=== PATIENT | male | born 1945 | race Caucasian/White ===

== ENCOUNTER 2019-04-30 08:41 | Emergency (ER) | payer MEDICARE, OTHER ==
[~2019-04-30] VITALS: Ht 175.3 cm; Wt 90.7 kg
[~2019-04-30 08:41] MED LIST: ADVIL LIQUI-GE200 MG PO; ALPRAZOLAM 0.50.5 M1 PO; ALPRAZOLAM ER1 MG PO; ALTACE10 M1 PO; ASPIRIN EC81 M1 PO; AZITHROMYCIN 2250 MG PO; BUDEPRION XL300 MG; GLUMETZA500; HUMALOG100 UNIT/1; HYDROCHLOROTHIA25 M1 PO; HYDROCODON-ACE1 EAC7 PO; LANTUS; PHENERGAN-CODE120 ML PO; SIMVASTATIN40 MG PO; TESTIM5 GM; TOPROL XL25 MG PO; VENTOLIN HFA 1818 GM INH
[2019-04-30 09:46] LABS: INFLUENZA A ANTIGEN Negative (Negative); INFLUENZA B ANTIGEN Negative (Negative)
[2019-04-30] MEDS ORDERED: TESSALON PERLE100 M1 PO (09:49)
[2019-04-30 10:05] VITALS: BP 129/77
== END 2019-04-30 10:07 | disposition home or self-care (01) ==
LOC: M.ERS 08:41
PROVIDERS: Emergency Medicine Emergency Medical Services
DX: J06.9 Acute upper respiratory infection, unspecified (principal); J34.89 Other specified disorders of nose and nasal sinuses; E11.9 Type 2 diabetes mellitus without complications; J44.9 Chronic obstructive pulmonary disease, unspecified; F32.9 Major depressive disorder, single episode, unspecified; Z87.442 Personal history of urinary calculi; Z79.4 Long term (current) use of insulin; Z79.899 Other long term (current) drug therapy; Z79.84 Long term (current) use of oral hypoglycemic drugs

== ENCOUNTER 2020-08-09 18:01 | Emergency (ER) | payer MEDICARE, OTHER ==
[~2020-08-09] VITALS: Ht 175.3 cm; Wt 90.7 kg
[~2020-08-09 18:01] MED LIST changes: +TESSALON PERLE100 M1 PO
[2020-08-09 18:36] LABS: ABSOLUTE BASOPHILS 0.2 thou/uL (0.0-0.2); ABSOLUTE LYMPHOCYTES 1.3 thou/uL (0.8-5.3); ABSOLUTE MONOCYTES 1.4 thou/uL (0.0-1.2); ABSOLUTE NEUTROPHILS 9.3 thou/uL (1.6-8.1); BASOPHILS 1.3 %; EOSINOPHILS 0.2 %; HEMATOCRIT 47.7 % (42.0-52.0); HEMOGLOBIN 16.3 gm/dL (14.0-18.0); LYMPHOCYTES 10.6 %; MCH 32.3 pg (26.0-34.0); MCHC 34.2 g/dL (28.0-37.0); MCV 94.4 fL (80.0-100.0); MONOCYTES 11.5 %; MPV 8.2 fl. (7.2-11.1); NUCLEATED RBCS 0 /100WBC; PLATELET COUNT* 311 thou/uL (150-400); POLYS 76.4 %; RBC 5.06 mil/uL (4.50-6.00); RDW-CV 14.1 % (10.5-14.5); WBC 12.2 thou/uL (4.0-11.0)
[2020-08-09 18:46] LABS: CALCIUM 9.3 mg/dL (8.5-10.1); CREATININE 1.2 mg/dL (0.6-1.3); POTASSIUM 4.2 mmol/L (3.5-5.1)
[2020-08-09 18:50] LABS: ALBUMIN 3.3 g/dL (3.4-5.0); TOTAL BILIRUBIN 0.2 mg/dL (<0.1-1.0); TOTAL PROTEIN 7.3 g/dL (6.4-8.2)
[2020-08-09 20:01] LABS: URINE BILIRUBIN NEGATIVE (Negative); URINE BLOOD TRACE (Negative); URINE CLARITY CLEAR; URINE COLOR YELLOW; URINE GLUCOSE-RANDOM 3+ (Negative); URINE KETONES 1+ (Negative); URINE LEUKOCYTES-REFLEX NEGATIVE (Negative); URINE NITRITE-REFLEX NEGATIVE (Negative); URINE PROTEIN NEGATIVE (Negative); URINE SPECIFIC GRAVITY <= 1.005 (1.005-1.030); URINE UROBILINOGEN 0.2 E.U./dl (0.2-1.0)
[2020-08-09] MEDS ORDERED: ZOFRAN ODT4 MG PO (20:36)
[2020-08-09] MEDS ORDERED: AMBIEN 5 MG TABL5 MG PO (20:36)
[2020-08-09 20:51] VITALS: BP 130/60
--- NOTE | 2020-08-11 11:45 | EKG ---
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1945 Requested By: Kuldeep Crawford Order Number: [id number] MD: Jered Khoury Measurements Intervals [place] Rate: 100 P: -54 MD: 213 QRS: -87 QRSD: 141 T: -16 QT: 381 QTc: 492 Interpretive Statements Multifocal atrial tachycardia Blocked PACs borderline prolonged MD interval RBBB and LAFB Compared to ECG 04/28/2012 05:33:19 Right bundle-branch block now present Sinus rhythm no longer present Left-axis deviation no longer present Electronically Signed On 08-11-2020 11:44:50 CDT by Jered Khoury [email or web address] <ELECTRONICALLY SIGNED> By: Jered Khoury MD, FACC 08/11/20 1144 1828 1828 Jered Khoury MD, FAC /EPI
== END 2020-08-09 20:51 | disposition home or self-care (01) ==
LOC: M.ERS 18:01
PROVIDERS: Emergency Medicine
DX: R10.9 Unspecified abdominal pain (principal); R11.2 Nausea with vomiting, unspecified; E66.9 Obesity, unspecified; F17.210 Nicotine dependence, cigarettes, uncomplicated; E11.9 Type 2 diabetes mellitus without complications; J44.9 Chronic obstructive pulmonary disease, unspecified; Z87.442 Personal history of urinary calculi

== ENCOUNTER 2020-11-20 13:26 | Inpatient (IN) | payer MEDICARE, OTHER ==
[~2020-11-20] VITALS: Ht 175.3 cm; Wt 96.2 kg
[2020-11-20] VITALS (8 sets, daily range): BP systolic 106–140; BP diastolic 59–72
[~2020-11-20 13:26] MED LIST changes: +AMBIEN 5 MG TABL5 MG PO; +ZOFRAN ODT4 MG PO
[2020-11-20 13:45] LABS: ABSOLUTE BASOPHILS 0.1 thou/uL (0.0-0.2); ABSOLUTE EOSINOPHILS 0.1 thou/uL (0.0-0.7); ABSOLUTE LYMPHOCYTES 1.3 thou/uL (0.8-5.3); ABSOLUTE MONOCYTES 0.9 thou/uL (0.0-1.2); ABSOLUTE NEUTROPHILS 7.2 thou/uL (1.6-8.1); BASOPHILS 0.8 %; EOSINOPHILS 1.3 %; HEMATOCRIT 43.6 % (42.0-52.0); HEMOGLOBIN 14.6 gm/dL (14.0-18.0); LYMPHOCYTES 13.8 %; MCH 31.5 pg (26.0-34.0); MCHC 33.6 g/dL (28.0-37.0); MCV 93.9 fL (80.0-100.0); MONOCYTES 9.7 %; MPV 7.4 fl. (7.2-11.1); NUCLEATED RBCS 0 /100WBC; PLATELET COUNT* 280 thou/uL (150-400); POLYS 74.4 %; RBC 4.64 mil/uL (4.50-6.00); RDW-CV 14.3 % (10.5-14.5); WBC 9.7 thou/uL (4.0-11.0)
[2020-11-20 13:53] LABS: CALCIUM 9.2 mg/dL (8.5-10.1); CREATININE 1.1 mg/dL (0.6-1.3); POTASSIUM 3.8 mmol/L (3.5-5.1)
[2020-11-20 14:03] LABS: ALBUMIN 3.5 g/dL (3.4-5.0); MAGNESIUM 1.8 mg/dL (1.8-2.4); TOTAL BILIRUBIN 0.2 mg/dL (<0.1-1.0); TOTAL PROTEIN 7.2 g/dL (6.4-8.2)
--- NOTE | 2020-11-20 15:10 | EKG ---
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1945 Requested By: Kuldeep Crawford Order Number: [id number] MD: Kirsten Knight Measurements Intervals [place] Rate: 74 P: 26 UT: 264 QRS: -71 QRSD: 148 T: -7 QT: 390 QTc: 433 Interpretive Statements Sinus rhythm Prolonged [place] interval RBBB and LAFB Compared to ECG 08/09/2020 18:28:25 Ectopic atrial tachycardia, multifocal no longer present Electronically Signed On 11-20-2020 15:10:11 CDT by Kirsten Knight [email or web address] <ELECTRONICALLY SIGNED> By: Kirsten Knight MD, [facility] 11/20/20 1510 1322 1322 Kirsten Knight MD, [facility] /EPI
[2020-11-20] MEDS ORDERED: PERCOCET 10-321 EACH PO (15:17)
[2020-11-20] MEDS ORDERED: METFORMIN HCL500 MG PO (15:17)
[2020-11-20] MEDS ORDERED: VASOTEC5 MG PO (15:17)
[2020-11-20] MEDS ORDERED: NOXIFOL-D32500 UNIT PO (15:18)
[2020-11-20] MEDS ORDERED: VITAMIN B-125000 MCG PO (15:18)
[2020-11-20] MEDS ORDERED: NOVOLIN N100 UNIT/1 SUBQ (15:20)
[2020-11-20] MEDS ORDERED: NOVOLIN R100 UNIT/1 SUBQ ×2 (15:21→15:25)
[2020-11-20] MEDS ORDERED: LUTEIN20 MG PO (15:32)
[2020-11-20] MEDS ORDERED: PRESERVISION A1 EAC2 PO (15:32)
[2020-11-20] MEDS ORDERED: WELLBUTRIN XL150 MG PO (15:33)
[2020-11-20] MEDS ORDERED: ALBUTEROL2.5 MG/31 INH (15:34)
[2020-11-20] MEDS ORDERED: NEURONTIN300 MG PO (15:35)
--- NOTE | 2020-11-20 16:11 | CARD ---
[address] [address] CARDIAC CATH REPORT Name: KIRSTEN BORDEN Room: [address] IN [facility]#: [id number] Admission: 11/20/20 Attend Phys: Suzie Hernandez Discharge: Date of : 45 Report #: [id number] THIS REPORT FOR: cc: Bethany Gruber Linda J. DO Blick, David R. 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 Procedure Narrative The patient was brought urgently to the Cardiac Catheterization Laboratory and was prepped and draped in a sterile manner. The right wrist was infiltrated with 1% Lidocaine subcutaneous anesthesia. IV conscious sedation was used throughout procedure with appropriate monitoring and was performed in the presence of a registered nurse who was an independent trained observer other than the physician performing the procedure. The right wrist accessed via ultrasound guidance. A 6 sheath was inserted into the right radial artery. Coronary angiography was performed using coronary diagnostic catheters. The right coronary system was accessed and visualized with a Diagnostic JR4 6Fr catheter. The left coronary [place] [address] CARDIAC CATH REPORT Name: KIRSTEN BORDEN Room: [address] IN [facility]#: [id number] Admission: 11/20/20 Attend Phys: Suzie Hernandez Discharge: Date of : 45 Report #: [id number] and visualized with a Diagnostic JL4 6Fr catheter. The left ventricle was accessed and visualized with a Diagnostic Pigtail 6Fr catheter. Left ventricular/Aortic Valve gradient assessed via catheter pullback. Left ventriculogram was performed in MENDEZ projection. Closure device was deployed with a 6 Fr vascband. The patient tolerated the procedure well and there were no complications associated with the procedure. There was no hematoma. Intraoperative Conscious Sedation Sedation start time: 1353 Case end Time: 1442 Fentanyl 25.0 mcg Versed 3.0 mg Fluoro Time: 10.7 minutes Dose: DAP 146737 cGycm2 1895.78 mGy Contrast Type and Amount: 140 [place] Coronary Angiography The patient's coronary anatomy is right dominant. Diagnostic Cath Left Main 60% distal stenosis LAD Apical LAD was a small artery with a very narrow lumen and had a 99% stenosis at the apex Circumflex 50% mid stenosis L HEMANTH medium sized vessel with a mid 80% stenosis Right Coronary 40% proximal stenosis. 99% stenosis was noted in the distal RCA after the acute margin. Filling defect consistent with a thrombus was noted. Ramus 0% stenosis Left Ventriculography The left ventricular ejection fraction is estimated to be 60-65%. Left ventricular wall motion abnormalities are present. There is no mitral insufficiency. Mild hypokinesis noted of the apex. Hemodynamics The aortic pressure is 117/55 mmHg with a mean of 87 mmHg. The left ventricular pressure is 121/7 mmHg with a mean of 13 mmHg. The left ventricular end diastolic pressure is 20 mmHg. There was no gradient across the aortic valve upon pullback. Pullback from the left ventricle to the aorta revealed no gradient across [place] [address] CARDIAC CATH REPORT Name: KIRSTEN BORDEN Room: [address] IN [facility]#: [id number] Admission: 11/20/20 Attend Phys: Suzie Hernandez Discharge: Date of : 45 Report #: [id number] PCI Technique Lesion Anticoagulation was achieved with Heparin. bolus of IV aggrastat given Percutaneous coronary intervention was performed on the distal right coronary artery. The lesion stenosis prior to intervention was 99% with PETERSON 3 flow. A JCR4 Guide Catheter was used to engage the RCA ostium. A bmw Interventional Guidewire was used to cross the lesion. BALLOON DILATION A Balloon catheter 2.5 x 12mm was inserted and inflated up to 18.00atm for 18seconds. Repeat angiography revealed the following post-dilatation results: 50% stenosis. STENT DEPLOYMENT A drug-eluting stent 3.5 x 15 mm was inserted and inflated up to 14.00atm for 20seconds. Repeat angiography revealed the following post-stent deployment results: 0% stenosis. Additional Inflation: 15.00atm for 19seconds. Additional Inflation: 17.00atm for 15seconds. Unable to advance a 3.5 x 38 mm drug eluting stent despite using a BMW guide wire advanced to the distal RCA to act as a Usman wire. Final angiography reveals 0 % stenosis with PETERSON 3 flow. Conclusion 1. 99% stenosis of the apical LAD which was a small vessel 2. 80% stenosis of the mid left posterolateral branch of the circumflex 3. 60% stenosis of the distal left main 4. 99% stenosis of the distal RCA with a thrombus 5. successful placement of a drug eluitng stent into the distal RCA 6. LVEF 60-65% Recommendations Smoking Cessation Medications Administered Clopidogrel <ELECTRONICALLY SIGNED> By: Kirsten Knight MD, [facility] 11/20/20 161 10 1611Davisuzie Knight MD, FACC /INF
[2020-11-21 00:51] VITALS: BP 120/64
[2020-11-21 04:32] LABS: HEMATOCRIT 38.8 % (42.0-52.0); HEMOGLOBIN 13.1 gm/dL (14.0-18.0); MCH 31.6 pg (26.0-34.0); MCHC 33.8 g/dL (28.0-37.0); MCV 93.6 fL (80.0-100.0); MPV 7.7 fl. (7.2-11.1); RBC 4.15 mil/uL (4.50-6.00); RDW-CV 14.2 % (10.5-14.5); WBC 6.7 thou/uL (4.0-11.0)
[2020-11-21 04:53] LABS: ANION GAP 7 mmol/L (7-16); BUN 12 mg/dL (7-18); CALCIUM 8.4 mg/dL (8.5-10.1); CHLORIDE 102 mmol/L (98-107); CHOLESTEROL 118 mg/dL (<200); CO2 30 mmol/L (21-32); GLUCOSE 155 mg/dL (70-99); HDL CHOLESTEROL 37 mg/dL (>40); LDL CHOLESTEROL 52 mg/dL (<100); POTASSIUM 3.7 mmol/L (3.5-5.1); SODIUM 139 mmol/L (136-145); TC:HDL 3.2 Ratio (Not establshd); TRIGLYCERIDE 148 mg/dL (<150); VLDL 30 mg/dL (<40)
[2020-11-21 04:57] VITALS: BP 135/80
[2020-11-21 05:25] LABS: SERUM ASSESSMENT CLEAR
[2020-11-21 08:10] VITALS: BP 131/81
[2020-11-21] MEDS ORDERED: CLOPIDOGREL75 MG PO (09:22)
[2020-11-21 10:18] VITALS: BP 131/81
[2020-11-21 10:29] VITALS: BP 131/81
[2020-11-21 10:51] VITALS: BP 131/81
--- NOTE | 2020-11-21 14:18 | EKG ---
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1945 Requested By: Kirsten Knight Order Number: [id number] July MD: Kirsten Knight Measurements Intervals [place] Rate: 91 P: 232 MS: 284 QRS: 235 QRSD: 134 T: 7 QT: 368 QTc: 453 Interpretive Statements Sinus rhythm Prolonged MS interval left anterior fasicular block and incomplete RBBB Compared to ECG 11/20/2020 13:22:23 no change Electronically Signed On 11-21-2020 14:18:42 CDT by Kirsten Knight [email or web address] <ELECTRONICALLY SIGNED> By: Kirsten Knight MD, [facility] 11/21/20 1418 1729 1729 Kirsten Knight MD, [facility] /EPI
--- NOTE | 2020-11-21 14:21 | EKG ---
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1945 Requested By: Kirsten Knight Order Number: [id number] July MD: Kirsten Knight Measurements Intervals [place] Rate: 97 P: -82 NJ: 237 QRS: -76 QRSD: 142 T: -18 QT: 362 QTc: 460 Interpretive Statements Sinus or ectopic atrial rhythm Prolonged [place] interval RBBB and LAFB Inferior infarct, old Compared to ECG 11/20/2020 17:29:42 no change Electronically Signed On 11-21-2020 14:21:45 CDT by Kirsten Knight [email or web address] <ELECTRONICALLY SIGNED> By: Kirsten Knight MD, [facility] 11/21/20 1421 6 6 Kirsten Knight MD, [facility] /EPI
--- NOTE | 2020-11-22 12:41 | CON ---
[address] [address] CONSULTATION Name: KIRSTEN BORDEN Room: [address] IN .R.#: [id number] Admission: 11/20/20 Attend Phys: Suzie Hernandez Discharge: 11/21/20 Date of : 45 Report #: [id number] THIS REPORT FOR: cc: Bethany Gruber,Kirstne Rasmussen MD [facility] ~ cc: Bethany Gruber DO DATE OF CONSULTATION: 11/20/2020 CARDIOLOGY CONSULTATION HISTORY OF PRESENT ILLNESS: The patient is a 75-year-old white male whom I was asked to see in the Emergency Room today after complained of chest pain. The patient has no previous history of heart disease. He is not very active at this time. He has had no previous cardiac evaluation. He was doing well until today. He went ate lunch and after lunch, he felt a discomfort in his chest went into his arm. He became short of breath, diaphoretic. Ambulance was called. He was noted to have an abnormal ECG. He was given aspirin. I was asked to see him on emergent basis. At this time, he continues to have chest pain. He denies previous history of chest pain. He denies any recent shortness of breath, palpitations, syncope, peripheral edema. He has had no bleeding, fever or cough. PAST MEDICAL HISTORY AND SURGICAL HISTORY: He has had hernia repair, appendectomy. He was told at the CT, he would need anticoagulation, but he cannot afford it. He does have a history of diabetes, hypertension. He is on insulin and blood pressure pills. FAMILY HISTORY: Negative for heart disease. SOCIAL HISTORY: He is . He and his lives in [place]. He smokes half pack of cigarettes a day. No alcohol abuse. REVIEW OF SYSTEMS: He has a history of COPD and has a nebulizer. No history of stroke, liver disease, kidney disease, cancer, psychiatric illness, chronic skin condition. PHYSICAL EXAMINATION: GENERAL: Revealed an elderly, mildly obese male, appeared in moderate distress secondary to chest pain. VITAL SIGNS: He has blood pressure 110/70, pulse was 80. HEENT: He was anicteric. Conjunctivae pink. Mucosa moist. NECK: Veins not distended. No carotid bruits. Neck is supple. CHEST: [place] [address] CONSULTATION Name: JUNIORIKELARRYLiliaLILY Room: [address]#: [id number] Admission: 11/20/20 Attend Phys: Suzie Hernandez Discharge: 11/21/20 Date of : 45 Report #: [id number] HEART: Regular rate and rhythm without murmur. ABDOMEN: Soft. EXTREMITIES: Had trace edema. Dorsalis pedis pulse cannot be palpated. SKIN: Cool and dry. NEUROLOGIC: Nonfocal. LABORATORY DATA: ECG shows a sinus rhythm, left anterior fascicular block, first degree AV block and a right bundle branch block. There was no acute ST-segment elevation noted. IMPRESSION AND RECOMMENDATIONS: 1. Acute coronary syndrome. Recommend urgent cardiac catheterization. 2. Hypertension. The patient is on medications. 3. Diabetes. The patient is on insulin. 4. Chronic obstructive pulmonary disease. The patient uses nebulizer. 5. Tobacco abuse. Critical care time would be from 12:45-2:00 p.m. for a total of 1 hour and 15 minutes. <ELECTRONICALLY SIGNED> By: Kirsten Knight MD, FACC 11/22/20 1241 1244 [id number] Dina Knight MD, FACC /nt
== END 2020-11-21 10:42 | disposition home or self-care (01) | DRG 246 ==
LOC: M.ERS 13:26 → M.CL 13:26 → M.TBA-CV 13:46 → M.2W 13:46
PROVIDERS: Emergency Medicine; Internal Medicine Cardiovascular Disease; ADMIT Internal Medicine; ATTEND Internal Medicine
DX: I25.110 Atherosclerotic heart disease of native coronary artery with unstable angina pectoris (principal); I50.33 Acute on chronic diastolic (congestive) heart failure; I24.9 Acute ischemic heart disease, unspecified; E11.9 Type 2 diabetes mellitus without complications; I11.0 Hypertensive heart disease with heart failure; J44.9 Chronic obstructive pulmonary disease, unspecified; F32.9 Major depressive disorder, single episode, unspecified; Z87.442 Personal history of urinary calculi; Z90.49 Acquired absence of other specified parts of digestive tract